=== PATIENT | female | born 1990 ===

== ENCOUNTER 2016-12-23 10:35 | Emergency (ER) | payer OTHER, MEDICAID ==
[2016-12-23] MEDS ORDERED: DECADRON IM ONE (11:18)
--- NOTE | 2016-12-23 11:31 | Emergency Department Report ---
Entered by JESUS MULLEN, acting as scribe for SUMI EM PA. - General Chief Complaint: Upper Respiratory Infection Stated Complaint: SOAR THROAT/CHILLS Time Seen by Provider: 12/23/16 11:11 Source: patient Mode of arrival: Ambulatory Limitations: No Limitations - History of Present Illness Initial Comments: 26 y/o female with no significant PMHx presents to the ED c/o an upper repiratory infection that began 2 days ago. Patient states she believes her symptoms are due to sleeping with her fan on at night. Reports associated congestion, rhinorrhea, and a scratchy sore throat, but she denies cough, chest pain, SOB, fever, chills, nausea, vomiting, ear pain, headache, and dizziness. Reports diaphoresis and fever, 101.1, during onset of symptoms which resolved last night. Took [place] Cold and Flu tablets and Tylenol with some relief. Took nebulizer treatment with some relief. Allergic to neomycin. MD Complaint: rhinorrhea, nasal congestion, sinus pain Onset/Timin -: days(s) Severity: mild Severity scale (0 -10): 3 Quality: other (scratchy) Consistency: constant Improves With: OTC cold medicine, other (nebulizer treatment) Worsens With: nothing Associated Symptoms: denies other symptoms, rhinorrhea, nasal congestion, sore throat. denies: fever, chills, myalgias, diaphoresis, headache, stiff neck, cough, chest pain, shortness of breath, abdominal pain, nausea, vomiting, diarrhea, dysuria, rash, confusion, right sweats, weight loss, epistaxis, hoarseness, ear pain Treatments Prior to Arrival: Acetaminophen, "cold medicine", other (nebulizer treatment) - Related Data Previous Rx's Medication Instructions Recorded Last Taken Type Amoxicillin/K Clav Tab [Augmentin 1 tab PO Q12HR #14 tab 12/23/16 Unknown Rx 875 mg] methylPREDNISolone [Medrol] 4 mg PO QDAY #1 tab.ds.pk 12/23/16 Unknown Rx Allergies Allergy/AdvReac Type Severity Reaction Status Date / Time neomycin Allergy Angioedema Verified 12/23/16 11:07 ED Review of Systems Comment: All other systems reviewed and negative Constitutional: denies: chills, diaphoresis, fever, malaise, weakness Eyes: denies: eye pain, eye discharge, vision change ENT: throat pain, congestion, other (rhinorrhea). denies: ear pain, dental pain , hearing loss, epistaxis Respiratory: denies: cough, orthopnea, shortness of breath, SOB with exertion, SOB at rest, stridor, wheezing Cardiovascular: denies: chest pain, palpitations Endocrine: no symptoms reported Gastrointestinal: denies: abdominal pain, nausea, vomiting, diarrhea Musculoskeletal: denies: back pain, joint swelling, arthralgia Skin: denies: rash, lesions Neurological: denies: headache, weakness, numbness, paresthesias Psychiatric: denies: anxiety, depression ED Past Medical Hx - Past Medical History Previous Medical History?: No - Surgical History Past Surgical History?: No - Family History Family history: no significant - Social History Smoking Status: Never Smoker Substance Use Type: None - Medications Home Medications: Home Medications Medication Instructions Recorded Confirmed Last Taken Type Amoxicillin/K Clav Tab [Augmentin 1 tab PO Q12HR #14 tab 12/23/16 Unknown Rx 875 mg] methylPREDNISolone [Medrol] 4 mg PO QDAY #1 tab.ds.pk 12/23/16 Unknown Rx ED Physical Exam - General Limitations: No Limitations General appearance: alert, in no apparent distress - Head Head exam: Present: atraumatic, normocephalic - Eye Eye exam: Present: normal appearance, PERRL, EOMI Pupils: Present: normal accommodation - ENT ENT exam: Present: normal exam, normal orophraynx, mucous membranes moist, TM's normal bilaterally, normal external ear exam - Expanded ENT Exam Expanded Ear exam: Present: normal external inspection Mouth exam: Present: normal external inspection Teeth exam: Present: normal inspection Throat exam: Positive: normal inspection. Negative: tonsillar erythema, tonsillomegaly, tonsillar exudate, R peritonsillar mass, L peritonsillar mass - Neck Neck exam: Present: normal inspection, full ROM. Absent: tenderness, meningismus, lymphadenopathy - Respiratory Respiratory exam: Present: normal lung sounds bilaterally. Absent: respiratory distress, wheezes, rales, rhonchi, stridor, accessory muscle use, decreased breath sounds - Cardiovascular Cardiovascular Exam: Present: regular rate, normal rhythm, normal heart sounds. Absent: systolic murmur, diastolic murmur, rubs, gallop - GI/Abdominal GI/Abdominal exam: Present: soft, normal bowel sounds - Extremities Exam Extremities exam: Present: normal inspection - Back Exam Back exam: Present: normal inspection - Neurological Exam Neurological exam: Present: alert, oriented X3 - Psychiatric Psychiatric exam: Present: normal affect, normal mood - Skin Skin exam: Present: warm, dry, intact, normal color. Absent: rash ED Course Vital Signs 12/23/16 12/23/16 11:02 11:06 Temperature 98.7 F 98.1 F Pulse Rate 60 58 L Respiratory 20 16 Rate Blood Pressure 111/65 110/84 O2 Sat by Pulse 100 100 Oximetry ED Medical Decision Making - Medical Decision Making patient is resting comfortably. NAd at this time, ED Disposition Clinical Impression: Acute sinusitis Disposition: DC-01 TO HOME OR SELFCARE Is pt being admited?: No Does the pt Need Aspirin: No Condition: Good Instructions: Sinusitis (ED) Prescriptions: Amoxicillin/K Clav Tab [Augmentin 875 mg] 1 tab PO Q12HR #14 tab methylPREDNISolone [Medrol] 4 mg PO QDAY #1 tab.ds.pk Referrals: PRIMARY CARE, [Primary Care Provider] - 3-5 Days CB ZAMORANO MD [Staff Physician] - 3-5 Days Forms: Work/School Release Form(ED) Time of Disposition: 11:31 This documentation as recorded by the PAZ rea JASMINE,accurately reflects the service I personally performed and the decisions made by me, SUMI EM PA.
[2016-12-23 12:12] VITALS: BP 111/65
== END 2016-12-23 11:42 | disposition home or self-care (01) ==
LOC: ED 10:35
DX: J01.90 Acute sinusitis, unspecified (principal); Z88.1 Allergy status to other antibiotic agents
CPT/HCPCS: 96372; 99282; J1100